=== PATIENT | male | born 2000 | race Caucasian/White ===

== ENCOUNTER 2021-07-19 22:23 | Emergency (ER) | payer OTHER ==
[~2021-07-19] VITALS: Ht 180.3 cm; Wt 80.6 kg
--- NOTE | 2021-07-19 23:27 | PHYS DOC ---
Adult General Chief Complaint Chief Complaint: ABDOMINAL PAIN HPI HPI Patient is a 20-year-old male who presents with a chief complaint of right flank pain which started a few hours ago, 7 out of 10, sharp in nature with feelings of radiation down towards his groin. States he never had anything like this before. States he is nauseous but has not thrown up. Denies any recent traumas, travels, fevers, chest pain, shortness of breath, dysuria, hematuria, diarrhea or blood in the stool. Review of Systems Review of Systems Review of systems otherwise unremarkable except noted in HPI Physical Exam Physical Exam Constitutional: Well developed, well nourished, no acute distress, non-toxic appearance. [] HENT: Normocephalic, atraumatic, Eyes: conjunctiva normal, no discharge. [] Neck: Normal range of motion, no tenderness, supple, no stridor. [] Cardiovascular:Heart rate regular rhythm, no murmur [] Lungs & Thorax: Bilateral breath sounds clear to auscultation [] Abdomen: , soft, right flank/right lower quadrant tenderness, no masses, no pulsatile masses. [] Skin: Warm, dry, no erythema, no rash. [] Back: Right CVA tenderness. [] Extremities: No tenderness, no cyanosis, no clubbing, ROM intact, no edema. [] Neurologic: Alert and oriented X 3, normal motor function, normal sensory function, no focal deficits noted. [] Psychologic: Affect normal, judgement normal, mood normal. [] EKG EKG [] Radiology/Procedures Radiology/Procedures []parison: None Findings: Lower chest: No consolidation or pleural effusion. Abdomen and pelvis: The liver, spleen, adrenal glands, and pancreas are unremarkable. No renal calculus. No hydronephrosis. Decompressed urinary bladder. Gallbladder wall thickening with mild adjacent pericholecystic fluid. No biliary ductal dilatation. Normal appendix. No evidence of bowel obstruction. No pathologic lymphadenopathy. No ascites. Bones: Chronic unilateral left pars defect. Slight anterolisthesis L5 on S1. Impression: 1. Gallbladder wall thickening with mild pericholecystic fluid, may represent acute cholecystitis. Electronically signed by: Saeid Evans DO (07/20/2021 12:40 AM) [facility] [place] Heart Score C/O Chest Pain: No Risk Factors: Risk Factors: DM, Current or recent (<one month) smoker, HTN, HLP, family history of CAD, obesity. Risk Scores: Risk Factors: DM, Current or recent (<one month) smoker, HTN, HLP, family hi story of CAD, obesity. Course & Med Decision Making Course & Med Decision Making Patient is 20-year-old male who presents with right flank/right lower quadrant pain that been going on about 4 hours associated with nausea Vital signs not concerning. Physical exam noted above. Patient placed on the monitor with IV access established. Given pain and nausea medicine. Laboratory analysis notable for leukocytosis. Ultrasound notable for cholelithiasis but no cholecystitis. Discussed all findings with patient and diagnosis of biliary colic. Advised on switching up diet to decrease risk of colic events. Advised to call his primary care physician in the morning to update on ED visit and discuss need for outpatient cholecystectomy. Gave return precautions to the ED. Patient grateful, verbalized understanding and agreed with plan of discharge. Dragon Disclaimer Dragon Disclaimer This electronic medical record was generated, in whole or in part, using a voice recognition dictation system. Departure Departure: Impression: Primary Impression: Right flank pain Additional Impression: Biliary colic Disposition: HOME / SELF CARE / HOMELESS Condition: GOOD Referrals: PCP,UNKNOWN (PCP) MARTA BYRD MD Patient Instructions: Biliary Colic Additional Instructions: Thank you for coming into the emergency department tonight and allowing us to take care of you. Please read the attached information carefully to go over things we discussed. Please adjust your diet as we discussed to decrease the ri sks of more colicky events. Please call your primary care physician in the morning to update on your ED visit and discuss need for outpatient surgery consult as to discern when you can get an outpatient gallbladder removal/cholecystectomy as we discussed. Please come back to the ED with new or concerning symptoms as we discussed. Problem Qualifiers ROSAMARIA MUNROE MD Jul 19, 2021 23:27
[2021-07-19] MEDS ORDERED: KETOROLAC 15 MG/ML VIAL. IVP ONE (23:30)
[2021-07-19] MEDS ORDERED: ONDANSETRON PF 4 MG/2 ML VIAL. IVP ONE (23:30)
[2021-07-20 00:20] LABS: BASO # 0.1 x10^3/uL (0.0-0.2); BASO % 1 % (0-3); EOS # 0.1 x10^3/uL (0.0-0.7); EOS % 0 % (0-3); HEMATOCRIT 44.1 % (39.0-53.0); HEMOGLOBIN 15.1 g/dL (13.0-17.5); LYMPH # 1.2 x10^3/uL (1.0-4.8); LYMPH % 6 % (24-48); MEAN CORPUSCULAR HEMOGLOBIN 31 pg (25-35); MEAN CORPUSCULAR HGB CONC 34 g/dL (31-37); MEAN CORPUSCULAR VOLUME 91 fL (79-100); MONO # 1.1 x10^3/uL (0.0-1.1); MONO % 6 % (0-9); NEUT # 16.5 x10^3uL (1.8-7.7); NEUT % 87 % (31-73); PLATELET COUNT 382 x10^3/uL (140-400); RED BLOOD COUNT 4.82 x10^6/uL (4.30-5.70); RED CELL DISTRIBUTION WIDTH 12.9 % (11.5-14.5)
[2021-07-20 00:31] LABS: CALCIUM 9.9 mg/dL (8.5-10.1); GFR 94.3; POTASSIUM 3.7 mmol/L (3.5-5.1)
[2021-07-20 00:35] LABS: BACTERIA,URINE 0 /HPF (0-FEW); BILIRUBIN,URINE NEG (NEG); CLARITY,URINE CLEAR; COLOR,URINE YELLOW; GLUCOSE,URINE NEG (NEG); NITRITE,URINE NEG (NEG); RBC,URINE 0 /HPF (0-2); SQUAMOUS EPITHELIAL CELL,UR OCC /LPF; WBC,URINE RARE /HPF (0-4)
[2021-07-20 00:36] LABS: ALBUMIN 4.4 g/dL (3.4-5.0); ALBUMIN/GLOBULIN RATIO 1.1 (1.0-1.7); TOTAL BILIRUBIN 0.5 mg/dL (0.2-1.0); TOTAL PROTEIN 8.4 g/dL (6.4-8.2)
[2021-07-20 00:40] LABS: % BANDS 2 % (0-9); % BASOS 1 % (0-3); % EOS 1 % (0-5); % LYMPHS 9 % (24-48); % MONOS 6 % (0-10); % SEGS 81 % (35-66)
[2021-07-20 00:41] LABS: PLT ESTIMATE ADEQUATE (ADEQUATE)
--- NOTE | 2021-07-20 00:42 | RAD ---
CT ABDOMEN+PELVIS WO History: Reason: right flank pain / Spl. Instructions: / History: Technique: Noncontrast examination of the abdomen and pelvis. Coronal and sagittal reconstructions we re performed. Exposure: One or more of the following individualized dose reduction techniques were utilized for thi s examination: 1. Automated exposure control 2. Adjustment of the mA and/or kV according to patient size 3. Use of iterative reconstruction technique. Comparison: None Findings: Lower chest: No consolidation or pleural effusion. Abdomen and pelvis: The liver, spleen, adrenal glands, and pancreas are unremarkable. No renal calcul us. No hydronephrosis. Decompressed urinary bladder. Gallbladder wall thickening with mild adjacent pericholecystic fluid. No biliary ductal dilatation. Normal appendix. No evidence of bowel obstruction. No pathologic lymphadenopathy. No ascites. Bones: Chronic unilateral left pars defect. Slight anterolisthesis L5 on S1. Impression: 1. Gallbladder wall thickening with mild pericholecystic fluid, may represent acute cholecystitis. Electronically signed by: Saeid Evans DO (07/20/2021 12:40 AM) [facility]
[2021-07-20 00:53] VITALS: BP 125/69
[2021-07-20] MEDS ORDERED: diphenhydrAMINE 50 MG/ML VIAL IVP ONE (01:30)
--- NOTE | 2021-07-20 02:48 | RAD ---
US ABDOMEN OR LOWER BACK LIMITED History: Reason: RUQ pain / Spl. Instructions: / History: Comparison: CT July 20, 2021. Technique: Transabdominal ultrasound images are obtained of the right upper quadrant. Findings: Liver is normal in echogenicity. Right hepatic lobe measures 16.1 cm. Portal flow is hepatopedal. Cholelithiasis. Mild gallbladder wall thickening measures 4 mm. Common bile duct measures 5 mm in diameter. Visualized pancreas not well seen due to overlying bowel gas. The right kidney measures 10.0 x 4.8 x 4.2 cm. No hydronephrosis. Visualized portions of the aorta and IVC have normal caliber. IMPRESSION: 1. Cholelithiasis with mild gallbladder wall thickening, may represent acute cholecystitis. Electronically signed by: Saeid Evans DO (07/20/2021 2:46 AM) [facility]
[2021-07-20] MEDS ORDERED: oxyCODONE/APAP 5/325 1 TAB TABLET ONE (03:05)
== END 2021-07-20 03:16 | disposition home or self-care (01) ==
LOC: ER 22:23
DX: K80.50 Calculus of bile duct without cholangitis or cholecystitis without obstruction (principal); Z20.822 Contact with and (suspected) exposure to COVID-19
CPT/HCPCS: 36415; 74176; 76705; 80053; 81001; 83690; 85007; 85025; 87426; 96374; 96375; 96376; 99285; C9803; J1200; J1885; J2405; J3010; U0003